=== PATIENT | male | born 1970 | race Caucasian/White ===

== ENCOUNTER 2016-06-04 15:42 | Emergency (ER) | payer OTHER ==
[~2016-06-04] VITALS: Ht 170.2 cm; Wt 78.2 kg
[2016-06-04 16:00] VITALS: BP 123/81
[2016-06-04] MEDS ORDERED: KETOROLAC 30 MG/1 ML IM ONE (16:30)
[2016-06-04] MEDS ORDERED: KETOROLAC 30 MG/1 ML ONE (16:40)
[2016-06-04] MEDS ORDERED: COLCHICINE 0.6 MG TABLET PO ONE (17:30)
== END 2016-06-04 17:54 | disposition home or self-care (01) ==
LOC: ED 17:40
DX: M10.072 Idiopathic gout, left ankle and foot (principal); J45.909 Unspecified asthma, uncomplicated
CPT/HCPCS: 36415; 73630; 84550; 96372; 99285; J1885

== ENCOUNTER 2016-08-02 13:53 | Emergency (ER) | payer OTHER ==
[~2016-08-02] VITALS: Ht 170.2 cm; Wt 75.5 kg
[2016-08-02 13:54] VITALS: BP 144/95
[2016-08-02] MEDS ORDERED: ONDANSETRON 2MG/ML, 2ML IVPush ONE (14:30)
[2016-08-02] MEDS ORDERED: SODIUM CHLORIDE FLUSH 10ML SYR IVF ONE (14:30)
[2016-08-02] MEDS ORDERED: ONDANSETRON 2MG/ML, 2ML ONE (14:30)
[2016-08-02] MEDS ORDERED: SODIUM CHLORIDE 0.9% 1,000ML IVBOLUS ONE (14:30)
[2016-08-02 14:47] LABS: BLOOD UREA NITROGEN 10 mg/dL (7-18)
[2016-08-02 14:50] LABS: ASPARTATE AMINO TRANSFERASE 333 U/L (15-37)
== END 2016-08-02 15:41 | disposition home or self-care (01) ==
LOC: ED 14:38
DX: K52.9 Noninfective gastroenteritis and colitis, unspecified (principal); R19.7 Diarrhea, unspecified; R11.2 Nausea with vomiting, unspecified; E87.1 Hypo-osmolality and hyponatremia; J45.909 Unspecified asthma, uncomplicated
CPT/HCPCS: 36415; 80053; 81003; 83690; 85025; 96361; 96374; 99284; J2405; J7030